=== PATIENT | female | born 1960 | race Caucasian/White ===

== ENCOUNTER 2023-08-25 09:50 | Outpatient (REF) | payer BC, SELFPAY ==
--- NOTE | ~2023-08-25 | FL_ITS ---
EXAMINATION: XR FLUOROSCOPY UPPER GI WITH AIR CLINICAL INFORMATION: Dysphagia COMPARISON: None TECHNIQUE: Fluoroscopic air contrast upper GI examination was performed utilizing standard techniques with thin and thick barium and effervescent granules. Numerous spot images were obtained. FINDINGS: There is moderate to severe degenerative disc change at C4-C5. Lateral cine images of the oropharynx and hypopharynx demonstrate normal swallow mechanism with normal epiglottic inversion and soft palate elevation. There is trace laryngeal penetration with thick barium. No tracheal penetration, glottic or subglottic aspiration identified. No nasopharyngeal reflux present. Hypopharyngeal structures appear normal without evidence of mass or diverticulum. There was no significant cricopharyngeal achalasia. Dual and single contrast images of the esophagus demonstrate normal caliber, contour, and mucosal pattern. There is a small area of anterior and posterior indentation of the lower cervical esophagus at the level the thoracic inlet that may represent a web. No mass or ulcerations identified. Esophageal peristalsis was normal. A small type I hiatal hernia is present. No significant gastroesophageal reflux was seen during the course of the examination and on reflux views. Dual contrast and single contrast images of the stomach demonstrated a normal contour. The gastric rugal folds have a mildly thickened appearance. There are multiple tiny foci of contrast pooling in the body and fundus the stomach that may represent small superficial aphthous ulcers. No masses or are seen. Contrast freely passed into the gastric antrum and duodenal bulb without delay. Single and air-contrast images of the duodenal bulb demonstrate no abnormality. The duodenal sweep has a normal appearance, course, and mucosal fold appearance. There is a small diverticulum involving the distal third/proximal fourth portion of the duodenum. The imaged proximal jejunum has a normal fold pattern and caliber. FLUOROSCOPY TIME: 3 minutes 38 seconds Number of Spot Images: 8 Number of Cine: 14 DOSE AREA PRODUCT: 1423 uGy-m2 (microgray-meter squared) FL/FL barium swallow IMPRESSION: 1. Trace little penetration with thick barium 2. Small area of anterior and posterior indentation of the lower cervical esophagus at the level the thoracic inlet that may represent a web. 3. Small type I hiatal hernia 4. Mildly thickened gastric rugal folds. In addition, there are multiple tiny foci of contrast pooling in the body and fundus of the stomach. These findings are suggestive of erosive gastritis. Recommend correlation with EGD. 5. Small diverticulum in the distal third/proximal fourth portion of the duodenum This procedure was performed by Darin Mcdonough PA-C, and supervised by Dr. Montanez
== END 2023-08-25 09:51 | disposition home or self-care (01) ==
LOC: HO.XRAY 09:50
PROVIDERS: PCP Nurse Practitioner Family; Visit Provider Otolaryngology
DX: R13.10 Dysphagia, unspecified (principal)
CPT/HCPCS: 74220

== ENCOUNTER → 2023-08-25 10:00 | Outpatient (BNV) | payer BC, SELFPAY | PROVIDERS: PCP Nurse Practitioner Family; Visit Provider Physician Assistant Surgical | DX: R13.10 Dysphagia, unspecified (principal) | CPT/HCPCS: 74246 ==